=== PATIENT | male | born 1970 | race Caucasian/White ===

== ENCOUNTER 2024-02-10 04:59 | Day surgery (SDC) | payer BC ==
[2024-02-04 11:51] VITALS: BMI 33.2
[2024-02-10 08:22] VITALS: RESP 18; TEMP 98
[2024-02-10 09:05] VITALS: BP 118/66; PULSE 67
== END 2024-02-10 09:00 | disposition home or self-care (01) ==
LOC: JASU-ENDO 04:59
PROVIDERS: ATTEND Internal Medicine Gastroenterology
PROC: 0DJD8ZZ Inspection of Lower Intestinal Tract, Via Natural or Artificial Opening Endoscopic (ICD-10-PCS; principal; 2024-02-10 08:00)
DX: Z12.11 Encounter for screening for malignant neoplasm of colon (principal)